=== PATIENT | female | born 2005 ===

== ENCOUNTER 2025-09-27 10:58 | Emergency (ER) | payer BC, SELFPAY ==
[2025-09-27 11:37] VITALS: BP 118/84
[2025-09-27 11:54] LABS: Hematocrit 40.2 % (37.0-47.0); Hemoglobin 13.6 g/dL (12.0-16.0); Mean Corp Hgb Conc. 33.8 g/dL (33.0-37.0); Mean Corpuscular Volume 85.4 fL (81.0-99.0); Nucleated Red Blood Cells % 0 %; Platelet Count 270 10^3/uL (130-400); Red Cell Dist. Width 12.4 % (11.5-14.5)
[2025-09-27 12:14] LABS: ALT (SGPT) 23 U/L (0-35); AST (SGOT) 25 U/L (14-36); Albumin 4.8 g/dl (3.5-5.0); Alkaline Phosphatase 63 U/L (38-126); Blood Urea Nitrogen 11 mg/dl (7-17); Calcium 9.3 mg/dl (8.4-10.2); Carbon Dioxide 25 mmol/L (22-30); Chloride 102 mmol/L (98-107); Glucose 83 mg/dl (70-99); Potassium 4.0 mmol/L (3.5-5.1); Sodium 135 mmol/L (135-145); Total Protein 8.0 g/dl (6.3-8.2); eGFR > 60.00
--- NOTE | 2025-09-27 14:52 | ED.GENMED ---
History of Present Illness
General
Chief Complaint: Fatigue
Source: patient
Exam Limitations: none
Time Seen by Provider: 09/27/25 14:45
Nursing documentation reviewed up to this point in time: agreed with
History of Present Illness
History of Present Illness:
20-year-old female with history of anxiety, anemia presents stating for the past 2 months she has had muscle tension (recently diagnosed at urgent care) fatigue, intermittent headaches and brain fog, she states she started her boyfriends mom's iron
supplements 4 days ago because she had a history of iron deficiency anemia. She is concerned that she is anemic. She denies chest pain or shortness of breath. Denies abdominal pain. Denies N/V/D/C
Past History
Past History
ED Past Medical History: Other (anemia, anxiety)
Review of Systems
Review of Systems
Allergies reviewed?: Yes
All Other Systems: ROS reviewed and negative except as documented in HPI and ROS
Constitutional: Reports fatigue
Respiratory: Denies trouble breathing
Cardiac: Denies chest pain
ABD/GI: Denies abdominal pain, nausea, vomiting, diarrhea, constipated or anorexia
Musculoskeletal: Reports no symptoms
Skin: Reports no symptoms
Neurological: Reports no symptoms
Psychiatric: Reports anxiety
Phy Exam
Physical Exam
Physical Exam:
GENERAL: No acute distress. A&Ox3.
CONSTITUTIONAL: Afebrile.
EYES: clear, conjunctivae normal
ENMT: moist mucus membranes
RESPIRATORY: Regular respirations, nonlabored, lungs clear.
CARDIOVASCULAR: Regular rate and rhythm, no murmurs, no rubs.
GI: Soft, nontender
MUSCULOSKELETAL: Moves with ease. Well perfused.
SKIN: Warm, dry, pink
PSYCH: Normal mood and affect. Well kept, interactive and appropriate
NEUROLOGIC: Awake, alert and oriented. No focal neurological deficits
Course
Orders/Labs/Results
Orders:
Orders
09/27/25 11:47
Complete Blood Count/With Diff Urgent
Comprehensive Metabolic Panel Urgent
09/27/25 11:47
09/27/25 11:47
Vital Signs
Initial and Last Documented VS:
Initial Vital Signs
Temp Pulse Resp BP Pulse Ox
98.9 F 86 18 118/84 97
09/27/25 11:37 09/27/25 11:37 09/27/25 11:37 09/27/25 11:37 09/27/25 11:37
Last Documented Vital Signs
Temp Pulse Resp BP Pulse Ox
98.9 F 86 18 118/84 97
09/27/25 11:37 09/27/25 11:37 09/27/25 11:37 09/27/25 11:37 09/27/25 14:56
MDM/Problems Addressed
Differential Diagnosis Includes:
anemia, anxiety about health
MDM/Problems Addressed:
20-year-old female with history of anxiety, anemia presents stating for the past 2 months she has had muscle tension (recently diagnosed at urgent care) fatigue, intermittent headaches and brain fog, she states she started her boyfriends mom's iron
supplements 4 days ago because she had a history of iron deficiency anemia. She is concerned that she is anemic. She denies chest pain or shortness of breath. Denies abdominal pain. Denies N/V/D/C
CBC, CMP normal, patient reassured as she is telling me that she is concerned about these
Various symptoms she admits that she is anxious about her health, her boyfriend at her bedside states she has been on chat GPT looking up all these issues
Instructed her to stay off of the Internet and all the websites and go with how she feels herself. Encouraged her to start a regular exercise program
She has made a first-time visit with her new PCP at [facility] in 10 days.
*Pulse Oximetry
SaO2: 97
Patient hypoxic: not evaluated
*Critical Care Note
Total Time (30-74mins, 75-104mins- exclusive of procedures): Not Applicable
ED Attending Note
-
Portions of this chart may have been created with voice recognition software.� Occasional wrong word or��sound alike� substitutions may have occurred due to the inherent limitations of voice recognition software.
Discharge Plan
Departure
Patient Disposition: Home (Routine Discharge)
Date of Disposition: 09/27/25
Time of Disposition: 14:57
Patient with high blood pressure during this ER visit?: No
Condition: Good
Discharge Problem:
Anxiety about health, Fatigue
Instructions: Fatigue (DC), Anxiety in adults - ED (DC)
Referrals:
Levon Bolivar MD [Active, Family Practice] - Keep scheduled appt
NONE,* [Family Provider, Internal Medicine]
Activity Restrictions/Additional Instructions:
As we discussed, nothing worrisome in your workup here today.
Stay off [employer]/Chat GPT, you are a healthy young woman.
Start a regular exercise program. Keep your appointment with your knew Primary Care Provider at Dr. Bolivar's office
Interventions
Interventions:
*Risk Screen - Suicide Last Done: 09/27/25 11:43
Discharge Date and Time
Print Language: ARGENTINE
[2025-09-27 16:45] VITALS: BP 127/85
== END 2025-09-27 16:50 | disposition home or self-care (01) ==
LOC: EMR 10:58
PROVIDERS: EMERGENCY PHYSICIAN Emergency Medicine
DX: F41.9 Anxiety disorder, unspecified (principal); R53.83 Other fatigue; D64.9 Anemia, unspecified; Z71.82 Exercise counseling
CPT/HCPCS: 99283; 80053; 85025